=== PATIENT | female | born 1985 | race Caucasian/White ===

== ENCOUNTER 2025-02-22 01:29 | Day surgery (SDC) | payer OTHER, SELFPAY ==
[2025-02-16 09:09] VITALS: BMI 27.5
--- NOTE | 2025-02-16 09:16 | PC.NURSE ---
Report to the Outpatient Waiting Room, entrance under the green pavilion located off [facility], at time _1200_ on date _[phone]_. Planned Procedure Time: _2pm_.? Time changes happen often and if your time is changed the preop area will call you the afternoon before. - You and your visitor will be asked to self-screen and do not enter if you have any COVID symptoms. Please call surgeon if you need to reschedule. - A mask is optional within the hospital at this time. - No food or drink from midnight until time of surgery and no smoking, or chewing tobacco (or any form of nicotine). No chewing gum, candy or mints. Take only the following medications with a SIP of water on the morning of surgery: __None___ DO NOT STOP ANY OF YOUR OTHER PRESCRIPTION MEDICATIONS PRIOR TO SURGERY EXCEPT THE FOLLOWING Hold all vitamins and supplements for 3 days per anesthesiologist. Medications to discontinue per physician Date to take last dose Please no make-up, nail indian, hairspray, perfume, deodorant, or body powder the day of surgery.? No jewelry (including any body piercings) or valuables the day of surgery, leave them at home.? Please take a shower or bath the night before, or the morning of, surgery with an antibacterial soap.? Wear comfortable, loose fitting clothing.? - Jewelry must be removed prior to entering the operating room.? Rings and piercings that are not removed may be cut off. - The hospital will not accept responsibility for valuables.? - Please leave all valuables, including medications, at home the day of surgery. If you are going home after surgery, a licensed dairy truck driver must drive you home.? - NO public transportation without another adult if you receive anesthesia. - We recommend that an adult stay with you for 24 hours following discharge. - We also recommend that you do not drive, make important decision, drink alcoholic beverages, or take any drugs that were not prescribed by your health care provider for at least 24 hours after your discharge time. Follow any additional instructions given to you from your surgeon. Telephone instructions given to __Margarette___and asked if any additional questions and then verbalized understanding. Patient advised to call surgeon office or pre surgery nurse liaison [phone] if any additional questions.
[2025-02-22] VITALS (8 sets, daily range): BP systolic 90–129; BP diastolic 50–79; PULSE 62–106; RESP 12–16; TEMP 36.2–36.4; O2SAT 99–100
--- OUTSIDE RECORDS SUMMARY | 2025-02-22 01:34 | XMS_ITS | Clinical Summary ---
Author Organization [facility] Address [address] [place] [id number] Care Team Providers Care American History Professor Name Role Phone Yusuf Yoo MD Primary Care Provider Allergies No known active allergies Medications levonorgestrel (MIRENA, 52 MG,) 20 MCG/DAY IUD 1 Intra Uterine Device by Intrauterine route once. Active Active Problems Problem Noted Date Diagnosed Date Other hemorrhoids 09/02/2024 Encounters Date Type Department Care Team Description 01/08/2025 9:46 AM CDT - 01/08/2025 11:59 PM CDT Hospital Encounter [facility] Ultrasound [address] [place] [address] Macie Yi MD Discharge Disposition: Home or Self Care (Routine Discharge) 01/08/2025 Travel from Last 3 Months Immunizations Immunization Administration Dates Next Due Influenza (Generic) 04/03/2019,04/17/2018,2014 Influenza Adult (Generic) 05/13/2023 MODERNA COVID-19 (12+) MRNA, LNP-S, PF, 100 MCG/ 0.5 ML DOSE 07/22/2020,06/24/2020 Tdap (Generic) 10/28/2018,11/15/2015 Family History Medical History Relation Comments Parkinson's Disease Father Relation Status Comments Father Social History Tobacco Use Types Packs/Day Years Used Date Smoking Tobacco: Every Day Cigarettes Passive Smoke Exposure: Current Smokeless Tobacco: Never Tobacco Cessation:Ready to Q uit: Yes; Counseling Given: Yes Comments:Given by Provider. Alcohol Use Standard Drinks/Week Comments Yes 0 (1 standard drink = 0.6 oz pur e alcohol) OCC PHQ-2 Answer Date Recorded Patient Health Questionnaire-2 Score 0 08/27/2024 Comments No Sex and Gender Information Value Date Recorded Sex Assigned at Female 08/27/2024 1:05 PM CDT Legal Sex Female 1:39 PM CDT Gender Identity Female 08/27/2024 1:05 PM CDT Sexual Orientation Straight 08/27/2024 1: 05 PM CDT Last Filed Vital Signs Vital Sign Reading Time Taken Comments Blood Pressure 124/78 08/27/2024 1:11 PM CDT Pulse 85 08/27/2024 1:11 PM CDT Temperature 37 C (98.6 F) 08/27/2024 1:11 PM CDT Respiratory Rate 14 08/27/2024 1:11 PM CDT Oxygen Saturation 98% 08/27/2024 1:11 PM CDT Inhaled Oxygen Concentration - - Weight 74.4 kg (164 lb) 08/27/2024 1:11 PM CDT Height 161.3 cm (5' 3.5) 08/27/2024 1:11 PM CDT Body Mass Index 28.6 08/27/2024 1:11 PM CDT Plan of Treatment Health Maintenance Due Date Last Done Comments Annual Physical 1989 Hepatitis C 2004 Hepatitis B Vaccines (1 of 3 - 19+ 3-dose series) 2005 Pneumococcal Vaccine: Pediatrics (0 to 5 Years) and At-Risk Patients (6 to 49 Years) (1 of 2 - PCV) 2005 HPV Vaccines (1 - 3-dose SCD M series) 2013 Cervical Cancer Screening Pa p Smear (Age 30 to 64) Every 3 Years 05/29/2021 05/29/2018 Cervical Cancer Screening Pa p with HPV Testing (Age 30 to 64) Every 5 Years 05/29/2023 05/29/2018 Cervical Cancer Screening wi th HPV 05/29/2023 COVID-19 Vaccine (3 - 2024-2 6 season) 2025 07/22/2020, 06/24/2020 DTaP, Tdap and Td Vaccines ( 3 - Td or Tdap) 10/28/2028 10/28/2018, 11/15/2015 PHQ-2 (Physician [place]) Completed 08/27/2024 Meningococcal B Vaccine Aged Out No l onger eligible based on patient's age to complete this topic Meningococcal Vaccine Aged Out No alysa anton eligible based on patient's age to complete this topic RSV Immunizations Under 20 Months Aged Out No longer eligible b ased on patient's age to complete this topic Procedures Procedure Name Priority Date/Time Associated Diagnosis Comments US PELVIC NON OB COMP TV Routine 01/08/2025 10:37 AM CDT Encounter for routine checking of intrauterine contraceptive device Polyp of cervix uteri from Last 3 Months Results * US PELVIC NON OB COMP TV (01/08/2025 10:37 AM CDT) Anatomical Region Laterality Modality Pelvis Computed Tomogra phy 01/10/2025 8:37 AM CDT Impressions 01/10/2025 8:41 AM CDT IMPRESSION: 1. IUD within the endometrium. 2. Heterogeneous echotexture to the myometrium with a 2.7 cm fibroid in the posterior fundal uterus. 3. Benign-appearing subendometrial cyst. 4. Normal ovaries. Referred By: MACIE YI Interpreted By: Efra Galarza MD, 01/10/2025 8:37 AM Narrative 01/10/2025 8:41 AM CDT [address] [place] [address] EXAMINATION: US PELVIC NON OB COMP TV EXAM DATE: 01/08/2025 9:53 AM COMPARISON STUDIES: Correlation with CT abdomen and pelvis of 08/31/2024 CLINICAL HISTORY: Encounter for routine checking of intrauterine contraceptive device. FINDINGS: Real time ultrasound examination performed by the carbon paper machine operator of the pelvis through transabdominal and transvaginal approach. Heterogeneous echotexture to the myometrium. Fairly well-defined mixed echogenic fibroid within the posterior fundal uterus measuring 2.7 x 1.8 x 2.0 cm. There is also a benign appearing posterior subendometrial cyst measuring 1.0 x 0.5 x 0.7 cm. Uterus. Measures 10.3 x 5.8 x 7.0 cm with an endometrial lining of 6 mm. No endometrial mass. No abnormal color flow to the endometrium. Minimal endometrial fluid. IUD is within the endometrium.. .. The right ovary measures 4.5 x 1.4 x 3.8 cm. without evidence of focal lesions. Normal follicles and flow noted. Normal color flow Doppler with spectral and wave form analysis. The left ovary measures 5.8 x 2.7 x 3.5 cm without evidence of focal lesions. Normal follicles and flow noted. Color flow Doppler with spectral and wave form analysis. No free fluid noted in the cul-de-sac. Procedure Note Efra Galarza MD - 01/10/[address] [place] [address] EXAMINATION: US PELVIC NON OB COMP TV EXAM DATE: 01/08/2025 9:53 AM COMPARISON STUDIES: Correlation with CT abdomen and pelvis of 08/31/2024 CLINICAL HISTORY: Encounter for routine checking of intrauterinecontraceptive device. FINDINGS: Real time ultrasound examination performed by the carbon paper machine operator of thelvis through transabdominal and transvaginal approach. Heterogeneous echotexture to the myometrium. Fairly well-defined mixedechogenic fibroid within the posterior fundal uterus measuring 2.7 x 1.8 x2.0 cm. There is also a benign appearing posterior subendometrial cystmeasuring 1.0 x 0.5 x 0.7 cm. Uterus. Measures 10.3 x 5.8 x 7.0 cm with an endometrial lining of 6 mm. No endometrial mass. No abnormalcolor flow to the endometrium. Minimal endometrial fluid. IUD is within the endometrium.. .. The right ovary measures 4.5 x 1.4 x 3.8 cm. without evidence of focallesions. Normal follicles and flow noted. Normal color flow Doppler withspectral and wave form analysis. The left ovary measures 5.8 x 2.7 x 3.5 cm without evidence of focallesions. Normal follicles and flow noted. Color flow Doppler with spectraland wave form analysis. No free fluid noted in the cul-de-sac. IMPRESSION: 1. IUD within the endometrium. 2. Heterogeneous echotexture to the myometrium with a 2.7 cm fibroid inthe posterior fundal uterus. 3. Benign-appearing subendometrial cyst. 4. Normal ovaries. Referred By: MACIE YI Interpreted By: Efra Galarza MD, 01/10/2025 8:37 AM us Macie Yi MD ULTRASOUND Final Result from Last 3 Months Insurance [facility] Care Teams American History Professor Relationship Specialty Start Date End Date Yusuf Yoo MD PCP - General INTERNAL MEDICINE 09/15/24
--- OUTSIDE RECORDS SUMMARY | 2025-02-22 01:34 | XMS_ITS | Clinical Summary ---
Author Organization [facility] Address [address] [place] [phone] Phone Care Team Providers Care Jewel Bearing Maker Name Role Phone Unavailable Primary Care Provider Unavailabl e Allergies No known active allergies Medications Hospital, Clinic, or Other Facility Administered Medication Ordered Dose Route Frequency Start Date End Date Status levonorgestrel (MIRENA) 20 mcg/24 hours (5 yrs) 52 mg intrauterine device 1 DeviceIndications:Enc ounter for IUD insertion 1 Device Intrauterine CONTINUOUS 02/05/2019 Active Active Problems No known active problems Resolved Problems Problem Noted Date Diagnosed Date Resolved Date premature rupture of membranes in third trimester 12/07/2018 02/05/2019 (spontaneous vaginal delivery) 12/07/2018 02/05/2019 Overview (12/07/2018): Monodi twins 34w PPROM Monochorionic diamniotic twi n gestation in first trimester 06/26/2018 02/05/2019 11/14/15 11/13/2015 02/05/2019 Threatened premature labor in third trimester 02/05/2019 , supervision, high -risk, third trimester 02/05/2019 Immunizations Immunization Administration Dates Next Due (ADACEL/BOOSTRIX)(10 YR UP) TDAP VACCINE, 0.5ML, IM 10/28/2018,11/15/2015 Influenza Seasonal Unspecified Formulation IM ,04/17/2018 Family History Medical History Relation Name Comments Hypertension Father Other Father Uterine Cancer Maternal Aunt Heart Disease Maternal Grandfather Hypertension Maternal Grandfather Healthy Mother Relation Name Status Comments Father Alive Maternal Aunt Maternal Grandfather Mother Alive Social History Tobacco Use Types Packs/Day Years Used Date Smoking Tobacco: Never Smokeless Tobacco: Never Alcohol Use Standard Drinks/Week Comments No 0 (1 standard drink = 0.6 oz pur e alcohol) Comments No Sex and Gender Information Value Date Recorded Sex Assigned at Not on file Legal Sex Female 4:04 PM CDT Gender Identity Not on file Sexual Orientation Not on file 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 file Not on file Not on file Last Filed Vital Signs Vital Sign Reading Time Taken Comments Blood Pressure 110/60 03/24/2019 1:59 PM CDT Pulse 72 03/24/2019 1:59 PM CDT Temperature 36.6 C (97.8 F) 12/08/2018 9:20 PM CDT Respiratory Rate 16 03/24/2019 1:59 PM CDT Oxygen Saturation 98% 12/09/2018 8:30 AM CDT Inhaled Oxygen Concentration - - Weight 68.4 kg (150 lb 12.8 oz) 03/24/2019 1:59 PM CDT Height 161.3 cm (5' 3.5) 03/24/2019 1:59 PM CDT Body Mass Index 26.29 03/24/2019 1:59 PM CDT Plan of Treatment Health Maintenance Due Date Last Done Comments HEPATITIS B VACCINES (1 of 3 - 19+ 3-dose series) 2005 HPV VACCINES (1 - 3-dose SCD M series) 2013 PAP SMEAR 05/29/2021 05/29/2018, 12/08 (Previously completed) CERVICAL CANCER SCREENING 05/29/2023 HPV/Cotest (21-29) 05/29/2023 05/29/2018 HPV/Cotest (30-65) 05/29/2023 05/29/2018 INFLUENZA VACCINE (#1) 2025 04/03/2019, 2017 DTAP/TDAP/TD VACCINES (3 - T d or Tdap) 10/28/2028 10/28/2018, 11/15/2015 Procedures Procedure Name Priority Date/Time Associated Diagnosis Comments CERV/VAG CYTO SCREEN PAP RLFX HPV Routine 05/29/2018 11:00 AM LOGISTICS RESEARCH ENGINEER Pap smear, as part of routine gynecological examination from Last 3 Months or Most Recently Relevant to Health Maintenance Results * CERV/VAG CYTO SCREEN PAP RLFX HPV (05/29/2018 11:00 AM LOGISTICS RESEARCH ENGINEER) CASE REPORT Gynecologic Cytology Report Case: [id number] Authorizing Provider: Gurjit Ocampo MD Collected: 05/29/2018 11:00 AM Ordering Location: [facility] Received: 05/29/2018 12:[address] Screen: Farida Stovall Specimen: LB PAP TP W/RFLX HPV PROT, Endocervix 06/04/2018 10:30 AM [facility] Microsoft Dynamics Manager Architect Specimen Adequacy Satisfactory for evaluation, endocervical/trans formation zone component present 06/04/2018 10:30 AM [facility] Microsoft Dynamics Manager Architect Interpretation Negative For Intraepithelial Lesion Or Malignancy 06/04/2018 10:30 AM [facility] Verified by Farida Stovall on 06/04/2018 at 1030 LOGISTICS RESEARCH ENGINEER Comment: Routine follow-up is suggested. Microsoft Dynamics Manager Architect Other Findings Severe inflammation noted 06/04/2018 10:30 AM [facility] GynLMP 03/30/18[ 018 10:30 AM [facility] Microsoft Dynamics Manager Architect Educational Note 06/04/2018 10:30 AM [facility] Comment: Gynecological cytology is a screening procedure subject to both false negative and false positive results. It is most reliable when a satisfactory sample is obtained on a regular repetitive basis. Results must be interpreted in the context of historic and current clinical information. Recommend patient management according to the 2012 ASCCP Consensus Guidelines, ([place]: Cancer J Clin, 62(3); 147-172,2012) EMBEDDED IMAGE 06/04/2018 10:30 AM [facility] Genital SWAB OF ENDOCERVIX / Unknown Collection / Unknown 05/29/2018 11:00 AM LOGISTICS RESEARCH ENGINEER 05/29/2018 12:52 PM LOGISTICS RESEARCH ENGINEER us Gurjit Ocampo MD PATHOLOGY/CYTOLOGY ORDERABLES Fi nal Result [facility] CLIA# [id number] [place] [address] from Last 3 Months or Most Recently Relevant to Health Maintenance Insurance RX MEDIMPACT Member Subscriber Plan / Payer (Ef fective for All Dates) Name:Margarette Blair Relation to Subscriber:Self Name:Margarette Blair Payer ID:Not on file Group ID:[id number] Type:RX Commercial Address: [place] Advance Directives For more information, please contact: [phone] * Full Code (Latest Code Status on File) Date Activated Date Inactivated Comments 12/07/2018 6:49 PM 12/09/2018 3:42 PM * Full Code Date Activated Date Inactivated Comments 12/07/2018 8:49 AM 12/07/2018 6:49 PM * Full Code Date Activated Date Inactivated Comments 11/28/2018 9:59 AM 12/05/2018 2:18 PM * Full Code Date Activated Date Inactivated Comments 07/04/2018 2:12 PM 07/04/2018 6:02 PM * Full Code Date Activated Date Inactivated Comments 11/14/2015 3:15 PM 11/16/2015 12:54 PM
--- NOTE | 2025-02-22 10:05 | P.PNAN_ITS ---
Anes - Initial Pre Proc Eval Procedure: Operation Date: 02/22/25 12:00 Proposed Procedures p Excisional Hemorrhoidectomy, Possible Banding - Owen Schwarz MD Date/Time: 02/22/25 10:05 Surgeon: Owen Schwarz MD Pre Op Diagnosis: GRADE 3 INTERNAL HEMORRHOIDS Patient Data Age: 39 Gender: F Height: 1.6 m Weight: 70.5 kg Allergies Allergy/AdvReac Type Severity Reaction Status Date / Time No Known Allergies Allergy Verified 02/16/25 09:08 Home Medications ?Medication ?Instructions ?Recorded ?Confirmed ?Type hydrocortisone acetate 25 mg 25 mg RECTAL DAILY #12 ea 12/31/24 02/16/25 Rx rectal suppository (Anusol-HC) levonorgestrel (Mirena) 1 device intrauterine ONCE 0 12/31/24 02/16/25 History lidocaine 4 % topical cream 1 applic topical Q8H PRN p ain 02/16/25 02/16/25 History (AsperFlex (lidocaine)) Patient hx anesthesia problems: none Family hx anesthesia problems: none Results Review: All pre-operative results and documents have been reviewed as part of the pre- operative evaluation. [facility] Past Medical History Medical History Encounter for insertion of Mirena IUD 2020 approx Family History Family History Grandparent Leukemia Heart disease Diabetes mellitus Hypertension Father Hypertension Social History Social History (Updated 02/09/25 @ 09:26 by Diana Buitrago CMA) Years smoked: 13 Smoking status: Current every day smoker Tobacco type: cigarettes Alcohol intake: current Substance use: never Substance use type: does not use Do You Feel Safe in your Home?: Yes Lack of Transportation: No Lack of Food: Never True Current Housing: I Have Housing Concerned About Future Housing: No Difficulty Paying Gas/Electric Bills: No Difficulty Paying for Meds: No Currently Unemployed: No Education: Master's Degree or Higher Difficulty w/ Childcare or Family Care: No Living arrangements: with family Occupation/Education: occupation Additional occupation/education comments: [employer] Spiritual care concerns: No Anes - Eval Final PreProcedure Day of Procedure 02/22/25 10:05 Patient weight: overweight Heart: regular rate and rhythm Lungs: clear to auscultation Airway: Mallampati scale class II Neurological: alert and oriented Last oral intake: >/= 8 hours ASA classification: II Emergent: no Anesthetic plan: proceed Anesthesia type and monitoring: general ETT and standard monitoring Results Review: All pre-operative results and documents have been reviewed as part of the pre- operative evaluation. Informed Consent: The patient's anesthetic plan and its attendant risks and benefits were discussed with the patient/family/POA. Questions were solicited and answers provided to the satisfaction of the patient/family/POA.
[2025-02-22] MEDS: ACETAMINOPHEN 500 MG TABLET 1000 MG PO (11:15)
[2025-02-22] MEDS: LACTATED RINGERS 1,000 ML 30 ML IV CONT ×2 (11:15→13:25)
[2025-02-22] MEDS: KETOROLAC 15 MG/ML VIAL (*BKC) IV PUSH (11:15)
[2025-02-22] MEDS: SCOPOLAMINE 1 MG PATCH 1 PATCH TRANSDERM (11:15)
--- NOTE | 2025-02-22 11:32 | WPDHPUPDATE1 ---
History and Physical Update Update Date/Time: 02/22/25 11:32 History and Physical has been reviewed, including an updated exam of the patient. There are NO changes in the patient's condition. Risks, benefits, and alternatives have been discussed and questions answered. Patient agrees to proceed with procedure.
[2025-02-22] MEDS: ceFAZolin 2 GM in SODIUM CHLORIDE 0.9% IV 50 ML 100 ML IVPB (11:56)
--- NOTE | 2025-02-22 12:37 | S_PTH ---
PATIENT: Margarette Blair LOC: [facility] U#:[id number] AGE/SX: 39/F ROOM: RE02/22/[address]: Owen Schwarz MD : 1985 BED: DIS: 02/22/2025 SPEC #: [id number] RECD: 02/22/25 13:48 STATUS: ELLEN REJed #: [id number] ROMA: 02/22/25 12:[address]: Owen Schwarz DEPT: [facility] Surgical RECD BY: Isauro Barnett ENTERED: 02/22/25 13:49 SP TYPE: Surgical OTHR DR: Yusuf YooMD Tissues: A - Hemorroid B - Hemorroid Procedures: Hematoxylin and Eosin Stain Gross and Microscopic Level 3
[2025-02-22 13:12] LABS: BEDSIDEPREGUCG Negative (Negative)
--- NOTE | 2025-02-22 13:36 | W.PM.PROC2 ---
Procedure Note - Detailed Date of Procedure 02/22/25 Pre-op Diagnosis GRADE 3 INTERNAL HEMORRHOIDS WITH BLEEDING Post-op Diagnosis Same Procedure Performed EXCISIONAL HEMORRHOIDECTOMY X2 AND BANDING OF INTERNAL HEMORRHOID X1 Surgeon Owen Schwarz MD Package Center Supervisor SHANEL Schroeder Anesthesia General Indications Patient is a 39-year-old female who presented with complaints of swelling, pain, and some bleeding from hemorrhoids which developed after of her twins. She has tried the gambit [id number] medications which no longer controlling the swelling of her hemorrhoids. She presents now for excisional hemorrhoidectomy and possible banding of hemorrhoids. Findings The patient had 2 main large hemorrhoidal columns located anteriorly at the 2 o'clock and 10 o'clock positions with the patient prone. The 2 larger hemorrhoidal columns were excised with excisional hemorrhoidectomy. The smaller internal hemorrhoid located anteriorly at the 6 o'clock position was ligated with a double hemorrhoid banding. Description of Procedure After informed consent was obtained patient brought to the operating room she was placed supine position and general endotracheal anesthesia was administered on the gurney. She was then carefully turned into the prone hosea-knife position on the operating table. Great care was taken to make sure all the pressure points were well padded. The buttocks were then taped apart to expose the perianal region. The area was then prepped and draped usual sterile fashion. A time-out was then performed to correctly identify the patient as well as procedure to be performed. She was given perioperative IV antibiotics. I then started the procedure by dilating the anal sphincters gently with lubrication and speculum. Once this was done I then performed a circumferential evaluation of the anal canal and distal rectum. There were no polyps in the distal rectum or the anal canal. No masses were appreciated. She had 2 large internal hemorrhoids which were not thrombosed but extended out or prolapse. There were located at the 2 o'clock and 10 o'clock positions posteriorly with the patient prone. She had a smaller internal hemorrhoid was not prolapse located at the 6 o'clock position anteriorly in the midline. I then proceeded to excise out the 2 larger hemorrhoid columns. I started with the hemorrhoid at the 2 o'clock position and injected 1% lidocaine mixed with 0.5% Marcaine with some epinephrine underneath the hemorrhoid. I then placed a 2-0 chromic suture at the apex of the hemorrhoid above the dentate line. I then incised the tissue on either side of the hemorrhoid extending it all the way out to the perianal skin in a rayna configuration. I then incised the tissue in the perianal region electrocautery and dissected to reach the anal sphincters. I palpated the anal sphincters which were stretched out with saline a speculum and easy to feel. I then completely excised out the hemorrhoid tissue superficial to the internal sphincter muscle fibers. The hemorrhoid was then sent to pathology labeled as hemorrhoid 2 o'clock position. Hemostasis in the incision was then achieved utilized electrocautery. I then close incision utilizing the 2-0 chromic suture previously placed a running it in a locking fashion to the anal verge. I then transition to using a 3-0 Vicryl suture to close the remaining portion decision on the perianal skin in a running and locking fashion. I then turned my attention to the hemorrhoid at the 10 o'clock position and excise this hemorrhoid in the similar fashion. Again a 2-0 chromic sutures placed at the apex of the hemorrhoid and then local anesthetic mixture was injected underneath the hemorrhoid tissue. Again a scalpel was then used to incise the tissue on either side of the hemorrhoid all the way out onto the perianal skin in a rayna configuration. The tissue was then carefully excised off utilized electrocautery preserving both the internal internal sphincters without any injury. This hemorrhoid was then labeled as hemorrhoid 10 o'clock and sent to pathology separately. The incision was then closed by running the 2-0 chromic suture in a locking fashion out to the anal verge. I then transition to using a 3-0 Vicryl suture in a running locking fashion to close the incision on the perianal skin. Lastly I then turned my attention to performing rubber-band ligation of the smaller internal hemorrhoid at the 6 o'clock position anteriorly in the midline. The same local anesthetic mixture was then injected underneath this hemorrhoid tissue. Then I applied a double rubber-band to the base of the hemorrhoid after grasping it with the Allis clamp. The band stayed in place and did not slip off. I then irrigated the anal canal sterile saline solution. Hemostasis was good on the hemorrhoidectomy incisions. I then placed a Gelfoam soaked packing into the anal canal covered with Lidocaine jelly. I then injected remaining portion of the local anesthetic mixture in the perianal skin for a perianal block. Bilateral pudendal nerve blocks were also injected. The perianal region was then cleaned and then fluffed 4x4 gauze, ABD pad, and disposable underwear was then placed for final dressing. The patient tolerated the procedure well no complications. All sponges, needles, and instrument counts were correct at the end procedure. EBL was _25__cc. The patient was awakened and taken to recovery in stable and satisfactory condition. Implants None Estimated Blood Loss 25 Drains No Packing Yes ( lidocaine covered Gel-Foam in the anal canal) Pathology Yes ( hemorrhoids x2 to pathology) Complications No immediate complications Condition Stable Disposition PACU [facility] Billing Surgery - Charge Forward: Surgery Billing
== END 2025-02-22 15:06 | disposition home or self-care (01) ==
PROVIDERS: PCP Internal Medicine; Visit Provider Surgery
PROC: (CPT 46260; principal; 2025-02-22 12:00)
DX: K64.2 Third degree hemorrhoids (principal); F17.210 Nicotine dependence, cigarettes, uncomplicated; Z80.6 Family history of leukemia; Z82.49 Family history of ischemic heart disease and other diseases of the circulatory system
CPT/HCPCS: 46260; 88304; J0690; A9270; J1100; J1885; J2004; J2250; J2405; J2704; J3010; J7120